=== PATIENT | male | born 2005 | race Caucasian/White ===

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

== ENCOUNTER 2024-12-23 15:23 | Emergency (ER) | payer OTHER, SELFPAY ==
[2024-12-23 15:28] VITALS: BP 148/62; PULSE 106; RESP 20; TEMP 36.7; O2SAT 95
--- NOTE | 2024-12-23 15:47 | ED_ITS ---
HPI - URI/Sore Throat General Chief Complaint: Upper Respiratory Infection Stated Complaint: Wheezing/Sinus Time Seen by Provider: 12/23/24 15:43 Source: patient and RN notes reviewed Mode of arrival: ambulatory Limitations: no limitations History of Present Illness HPI Narrative: Patient presents today with a 2 day history of cough, nasal congestion, and scratchy throat with wheezing that started yesterday. Denies fever. He has been it increase in the use of his albuterol nebulizer treatments and inhaler with only short-term relief. Last treatment was 1 hour prior to arrival. States possible sick contacts with influenza. Related Data Home Medications ?Medication ?Instructions ?Recorded ?Confirmed ?Last Taken ?Type albuterol sulfate 2.5 mg/3 mL See Rx Instructions .Route .COMPLEX 06/05/23 11/22/23 Unknown History (0.083 %) solution for nebulization Allergies Allergy/AdvReac Type Severity Reaction Status Date / Time No Known Allergies Allergy Verified 12/23/24 15:38 Review of Systems Review of Systems: CONSTITUTIONAL: Denies body aches, fever, chills, or sweats. EYES: Denies visual changes, redness, or discharge. ENT: Denies rhinorrhea, or otalgia.+ congestion, scratchy throat CARDIOVASCULAR: Denies chest pain, palpitations, or edema. RESPIRATORY: Denies dyspnea.+ cough, wheezing GASTROINTESTINAL: Denies abdominal pain, nausea, vomiting, or diarrhea. GENITOURINARY: Denies dysuria or hematuria. SKIN: Denies rash, itching, or wounds. MUSCULOSKELETAL: Denies back pain, joint pain, or myalgia. NEUROLOGIC: Denies headache, numbness, tingling, or weakness. PSYCH: Denies depression or anxiety. [facility] Past Medical History Medical History Asthma Social History Social History Gender identity (if verbalized by the patient): Male Comments At time of signature, I have reviewed and agree with nursing past medical, surgical, social and family history unless otherwise noted. Please see nursing chart for further information. There is no relevant family history pertinent to the presenting complaint Exam Narrative: GENERAL: Well-appearing, well-nourished, and in no acute distress. HEAD: Normocephalic, atraumatic. EYES: EOMI. No redness or drainage. Conjunctivae normal. ENT: Mucous membranes pink and moist. Nares clear. No rhinorrhea. TMs normal bilaterally. Throat normal. Uvula midline. NECK: Normal AROM. Supple. No lymphadenopathy. CHEST: No respiratory distress. Expiratory wheezing throughout, inspiratory wheezing in the left upper lobe. HEART: Regular rate and rhythm. No murmur appreciated. EXTREMITIES: Normal range of motion. No edema. SKIN: Warm, dry, no rash. Capillary refill normal. Normal skin turgor. NEURO: No focal deficits. Alert and oriented x3. Gait steady. PSYCH: Normal affect. No signs of depression or anxiety. Course Course Level of Care: Express Care Visit Vital Signs Vital signs: Vital Signs Temperature 98.1 F 12/23/24 15:28 Pulse Rate 106 H 12/23/24 15:28 Respiratory Rate 20 12/23/24 15:28 Blood Pressure 148/62 H 12/23/24 15:28 Pulse Oximetry 95 12/23/24 15:28 Oxygen Delivery Room Air 12/23/24 15:28 Temperature 98.1 F 12/23/24 15:28 Pulse Rate 106 H 12/23/24 15:28 Respiratory Rate 20 12/23/24 15:28 Blood Pressure 148/62 H 12/23/24 15:28 Pulse Oximetry 95 12/23/24 15:28 Oxygen Delivery Room Air 12/23/24 15:28 Reviewed MDM - URI/Sore Throat MDM Narrative Medical decision making narrative: Influenza and COVID negative. Symptoms likely viral in etiology. Discussed [id number] medication use and duration of illness. Prescription for prednisone and a new albuterol inhaler sent to pharmacy. Anticipatory guidance given. ED precautions given. Differential Diagnosis Differential diagnosis: Likely upper respiratory infection, viral infection, in fluenza and other (COVID-19, asthma exacerbation) Lab Data Attestation: I reviewed the patient's lab results. Labs: Lab Results 12/23/24 Range/Units 15:33 POC Influenza A Ag Negative (Negative) POC Influenza B Ag Negative (Negative) POC SARS CoV-2 Ag Negative (Negative) Critical Care Time Critical Care Time Critical Care Time: No Discharge Plan Discharge Clinical Impression: Upper respiratory infection Qualifiers: URI type: unspecified URI Qualified Code(s): J06.9 - Acute upper respiratory infection, unspecified Asthma exacerbation Qualifiers: Asthma severity: unspecified severity Asthma persistence: unspecified Qualified Code(s): J45.901 - Unspecified asthma with (acute) exacerbation Patient Disposition: Home, Self-Care Condition: Stable Instructions: Upper Respiratory Infection (DC) Additional Instructions: Your COVID-19 and influenza swabs are negative today. Your symptoms are likely due to a viral illness, which is not treated with antibiotics. Virus symptoms can last for up to 7-10days. Take Tylenol or ibuprofen for pain or fever. Take the prednisone and benzonatate as directed. Use your albuterol inhaler and nebulizer treatments as needed for wheezing. Rest and stay hydrated. Follow up with your PCP in 7 days if symptoms are not improving. Go to the ER immediately if you develop worsening wheezing, shortness of breath, difficulty swallowing, or any other concerning symptoms. Your blood pressure was elevated above 120/80 today at Urgent Care. This puts you above the threshold for follow up. Please schedule a followup visit with your personal physician as soon as possible, for further evaluation and treatment. Even blood pressure exceeding 120/80 may indicate pre-hypertension. Patient Language: Pashto Prescriptions: New benzonatate 200 mg capsule 200 mg PO TID PRN (Reason: cough) Qty: 20 0RF albuterol sulfate 90 mcg/actuation HFA aerosol inhaler 2 inh inhalation Q4-6H PRN (Reason: shortness of breath or wheezing) Qty: 8.5 0RF prednisone 50 mg tablet 50 mg PO DAILY 5 Days Qty: 5 0RF No Action albuterol sulfate 2.5 mg /3 mL (0.083 %) solution for nebulization See Rx Instructions .ROUTE .COMPLEX Rx Instructions: Rx Follow-up/Referrals: Jaime Jacinto MD [Primary Care Provider] - Time of Disposition: 15:59
[2024-12-23 15:53] LABS: EDCOVIDSCREEN Negative (Negative)
[2024-12-23 15:54] LABS: EDINFLUASCREEN Negative (Negative); EDINFLUBSCREEN Negative (Negative)
== END 2024-12-23 16:11 | disposition home or self-care (01) ==
PROVIDERS: Emergency Provider Nurse Practitioner; PCP Emergency Medicine
DX: J06.9 Acute upper respiratory infection, unspecified (principal); J45.901 Unspecified asthma with (acute) exacerbation; Z20.822 Contact with and (suspected) exposure to COVID-19
CPT/HCPCS: 87426; 87804; 99213; G0463

== ENCOUNTER 2025-11-21 13:32 | Emergency (ER) | payer OTHER, SELFPAY ==
[2025-11-21 13:41] VITALS: BP 136/86; PULSE 81; RESP 20; TEMP 36.6; O2SAT 100
--- NOTE | 2025-11-21 14:00 | ED_ITS ---
HPI - URI/Sore Throat General Chief Complaint: Upper Respiratory Infection Stated Complaint: Cough Source: patient Mode of arrival: ambulatory Limitations: no limitations History of Present Illness HPI Narrative: THis is a 20 y/o male patient with medical history of asthma that presents to the urgent care for a work note. Patient reports he has asthma, he has been using his inhaler about every two hours. He went to [place] over the weekend, he states he has been vaping more and causing increased SOB. he has been using his inhaler. patient states he is supposed to be on Advair too however there was an issue at the pharmacy. patient states he has not followed up at this pcp office. patient reports that he does not have any distress. MD elicited complaint: cough Consistency: intermittent Severity: mild Description of mucous: clear Exacerbating factors: nothing Relieving factors: nothing Associated symptoms: denies other symptoms Treatments prior to arrival: none Related Data Home Medications ?Medication ?Instructions ?Recorded ?Confirmed ?Last Taken ?Type albuterol sulfate 2.5 mg/3 mL See Rx Instructions .Rou te .COMPLEX 06/05/23 11/21/25 Unknown History (0.083 %) solution for nebulization Allergies Allergy/AdvReac Type Severity Reaction Status Date / Time No Known Allergies Allergy Verified 11/21/25 13:37 Review of Systems Review of Systems: All systems reviewed & are unremarkable except as noted in HPI and below PMFSH Past Medical History Medical History Asthma Social History Social History Gender identity (if verbalized by the patient): Male Exam Const: General: healthy appearing Nutritional Appearance: well nourished Orientation/consciousness: patient oriented x3 Limitations: no limitations HENMT: Head: normal to inspection Ears: external ears normal Face/Nose/Sinus: Normal external nose present Face and sinus: normal facial exam Mouth: Yes Normal oral and palatal mucosa present Teeth and gingiva: dentition normal Throat: posterior oropharynx normal Eyes: Conjunctivae: conjunctivae normal Pupils: Equal, round and reactive pupils present EOM: EOMs intact bilaterally Neck: Neck: normal visual inspection Chest: Chest palpation & inspection: normal inspection of the chest Resp: Effort & Inspection: normal respiratory effort Auscultation: clear to auscultation bilaterally Cardio: Rate: regular rate Rhythm: regular rhythm GI: GI Palp: Yes Soft to palpation Auscultation: normal bowel sounds Back/Spine/Pelvis: Back: no CVA tenderness Skin: General skin exam: normal color Rashes: no rashes Wounds: no wounds Neuro: General: patient oriented x3 Cranial nerves: Yes Nystagmus not present Speech: normal speech Extrem: General: normal to inspection Psych: Mental Status: mental status grossly normal Affect: normal affect Attitude: cooperative Course Course Emergency Course: This is a 20 y/o male patient with medical history of asthma that presents to the urgent care for a work note. Patient reports he has asthma, he has been us ing his inhaler about every two hours. He went to [place] over the weekend, he states he has been vaping more and causing increased SOB. he has been using his inhaler. patient states he is supposed to be on Advair too however there was an issue at the pharmacy. patient states he has not followed up at this pcp office. patient reports that he does not have any distress. vital signs stable had long conversation with patient on vaping and injury to lungs with vaping. discussed with patient to stop vaping. discussed his exam findings are benign. will treat with prednisone and have him call your primary office for details on Adviar inhaler. take prednisone as prescribed, follow-up with her primary in the next 1-2 days without fail, return to the emergency department any worrisome sign or symptom. patient denies any further needs or concerns to be addressed prior to discharge Level of Care: Express Care Visit Vital Signs Vital signs: Vital Signs Temperature 97.9 F 11/21/25 13:41 Pulse Rate 81 11/21/25 13:41 Respiratory Rate 20 11/21/25 13:41 Blood Pressure 136/86 11/21/25 13:41 Pulse Oximetry 100 11/21/25 13:41 Oxygen Delivery Room Air 11/21/25 13:41 Temperature 97.9 F 11/21/25 13:41 Pulse Rate 81 11/21/25 13:41 Respiratory Rate 20 11/21/25 13:41 Blood Pressure 136/86 11/21/25 13:41 Pulse Oximetry 100 11/21/25 13:41 Oxygen Delivery Room Air 11/21/25 13:41 [facility] MDM Narrative Medical decision making narrative: This is a 20 y/o male patient with medical history of asthma that presents to the urgent care for a work note. Patient reports he has asthma, he has been using his inhaler about every two hours. He went to [place] over the weekend, he states he has been vaping more and causing increased SOB. he has been using his inhaler. patient states he is supposed to be on Advair too however there was an issue at the pharmacy. patient states he has not followed up at this pcp office. patient reports that he does not have any distress. vital signs stable had long conversation with patient on vaping and injury to lungs with vaping. discussed with patient to stop vaping. discussed his exam findings are benign. will treat with prednisone and have him call your primary office for details on Adviar inhaler. take prednisone as prescribed, follow-up with her primary in t he next 1-2 days without fail, return to the emergency department any worrisome sign or symptom. patient denies any further needs or concerns to be addressed prior to discharge Differential Diagnosis Differential Diagnosis: asthma exacerbation Medical Records I have reviewed the following patient records and this information was taken into consideration when formulating the assessment and plan.: previous labs, previous ER visits and previous clinic visits Discharge Plan Discharge Clinical Impression: Asthma Qualifiers: Asthma severity: mild Asthma persistence: unspecified Asthma complication type: unspecified Qualified Code(s): J45.909 - Unspecified asthma, uncomplicated Patient Disposition: Home Condition: Stable Instructions: Asthma (ED) Additional Instructions: stop vaping call your primary office for details on Adviar inhaler take prednisone as prescribed follow-up with her primary in the next 1-2 days without fail return to the emergency department any worrisome sign or symptom Patient Language: Spanish Prescriptions: New prednisone 20 mg tablet 20 mg PO BID Qty: 10 0RF No Action albuterol sulfate 90 mcg/actuation HFA aerosol inhaler 2 inh inhalation Q4-6H PRN (Reason: shortness of breath or wheezing) Qty: 8.5 0RF albuterol sulfate 2.5 mg /3 mL (0.083 %) solution for nebulization See Rx Instructions .ROUTE .COMPLEX Rx Instructions: Rx Follow-up/Referrals: Jaime Jacinto MD [Primary Care Provider, Family Practice] Stand Alone Forms: Work/School Release IP Time of Disposition: 14:03
== END 2025-11-21 14:07 | disposition home or self-care (01) ==
PROVIDERS: Emergency Provider Nurse Practitioner Family; PCP Emergency Medicine
DX: J45.909 Unspecified asthma, uncomplicated (principal)
CPT/HCPCS: 99213; G0463